=== PATIENT | male | born 1940 | race Caucasian/White ===

== ENCOUNTER 2019-03-18 13:39 | Emergency (ER) | payer MEDICARE ==
[2019-03-18 14:38] LABS: ABS Basophils 0.1 10^3/ul (0-0.2); ABS Eosinophils 0.1 10^3/ul (0-0.6); ABS Monocytes 1.2 10^3/ul (0-0.8); ABS Neutrophils 12.5 10^3/ul (1.5-7.7); Eosinophil % 0.9 %; Hematocrit 38 % (42-52); Hemoglobin 12.9 g/dL (14.0-18.0); Lymphocyte % 6.8 %; Mean Corpuscular HGB Conc 34 g/dL (31-36); Mean Corpuscular Hemoglobin 29 pg (27-31); Mean Corpuscular Volume 87 fL (80-94); Mean Platelet Volume 6.3 fL (7.4-10.4); Platelet Count 203 10^3/uL (150-450); Red Blood Count 4.43 10^6 /uL (4.18-5.48); Red Cell Distribution Width 14 % (10-15)
[2019-03-18 14:54] LABS: INR 1.23 (0.82-1.09)
[2019-03-18 14:56] LABS: Troponin I 0.02 ng/mL (<0.04)
[2019-03-18 15:08] LABS: Albumin 3.7 g/dL (3.2-5.2); Albumin/Globulin Ratio 1.1 (1-3); BUN/Creatinine Ratio 18.4 (8-20); Calcium 8.9 mg/dL (8.6-10.3); EGFR African American 89.3 (>60); EGFR Non-African American 73.8 (>60); Globulin 3.4 g/dL (2-4); Potassium 3.9 mmol/L (3.5-5.0); Total Bilirubin 0.9 mg/dL (0.2-1.0); Total Protein 7.1 g/dL (6.4-8.9)
--- NOTE | 2019-03-18 15:39 | ED ---
HPI Chest Pain - HPI Summary HPI Summary: This patient is a 78 year old M [facility] by his with a chief complaint of left CP/chest wall pain since 6 days ago. CP is associated with certain movements such as lifting his left arm. This CP is sharp and intermittent. The pain worsened last night to the point that he could not sleep in any position. Pt is not sure what caused his CP. The patient rates the current pain 4/10 in severity. Symptoms aggravated by movement. Symptoms alleviated by rest. Patient reports unproductive cough. Pt has hx of HTN, hyperlipidemia, a-fib. He is not on blood thinner medication. Note patient had lab work and his primary care doctor on March 07 that showed an elevated alkaline phosphatase. Dr. Hutchinson called the ED to let us know that he is coming in, and asked use to discuss lab results with patient. - History of Current Complaint Chief Complaint: EDChestPainROMI Time Seen by Provider: 03/18/19 15:08 Hx Obtained From: Patient, Family/Courtesy Clerk - Onset/Duration: Started Days Ago - 6, Still Present, Worse Since - last night Timing: Intermittent, Lasting Days - 6 Initial Severity: Moderate Current Severity: Moderate Pain Intensity: 4 Pain Scale Used: 0-10 Numeric Character: Sharp/Stabbing Aggravating Factor(s): Movement Alleviating Factor(s): Rest Associated Signs and Symptoms: Positive: Chest Pain, Nonproductive Cough - Allergy/Home Medications Allergies/Adverse Reactions: Allergies Allergy/AdvReac Type Severity Reaction Status Date / Time MS Oxycodone [From Percocet] Allergy Mild Altered Verified 12/16/15 12:27 Mental Status Home Medications: Home Medications Aspirin EC TAB* [Ecotrin EC Low Dose 81 MG*] 81 mg PO QPM 03/18/19 [History Confirmed 03/18/19] Azelastine HCl 137 mcg BOTH NARES BID 03/18/19 [History Confirmed 03/18/19] Calcium Carbonate/Vitamin D3 [Calcium/Vitamin D] 1 cap PO BID 03/18/19 [History Confirmed 03/18/19] Cyanocobalamin INJ * [Vitamin B12 INJ *] 1,000 mcg IM MONTHLY 03/18/19 [History Confirmed 03/18/19] Fluticasone HFA 44 mcg(NF) [Flovent Hfa 44 mcg(NF)] 1 puff INH QAM 03/18/19 [ History Confirmed 03/18/19] Hydrochlorothiazide TAB* [Hydrodiuril TAB*] 25 mg PO QAM 03/18/19 [History Confirmed 03/18/19] Irbesartan (NF) [Avapro (NF)] 300 mg PO QPM 03/18/19 [History Confirmed 03/18/19 ] Lactobacillus Acidophilus [Freeze Dried Acidophilus] 1 cap PO DAILY 03/18/19 [ History Confirmed 03/18/19] Levothyroxine TAB* [Synthroid TAB*] 75 mcg PO QAM 03/18/19 [History Confirmed ] Magnesium Oxide [Magnesium] 250 mg PO DAILY 03/18/19 [History Confirmed 03/18/19 ] Metoprolol Succinate XL TAB* [Toprol XL TAB*] 50 mg PO QAM 03/18/19 [History Confirmed 03/18/19] Multivitamins/Minerals TAB* [Theragran/minerals TAB*] 1 tab PO DAILY 03/18/19 [ History Confirmed 03/18/19] Mckenzie-3S/Dha/Epa/Fish Oil [Fish Oil 1,200 mg Softgel] 1 cap PO BID 03/18/19 [ History Confirmed 03/18/19] Simvastatin (NF) [Zocor (NF)] 40 mg PO DAILY 03/18/19 [History Confirmed ] Tetrahydrozoline HCl [Eye Drops] 0.05 % BOTH EYES QAM 03/18/19 [History Confirmed 03/18/19] PMH/Surg Hx/FS Hx/Imm Hx Previously Healthy: No Endocrine/Hematology History: Reports: Hx Thyroid Disease - LOW THYROID- ON MEDICATION FOR Denies: Hx Diabetes Cardiovascular History: Reports: Hx Hypertension - ON MEDICATION FOR Denies: Hx Pacemaker/ICD Respiratory History: Denies: Hx Asthma Musculoskeletal History: Denies: Hx Osteoporosis, Hx Scoliosis Sensory History: Reports: Hx Contacts or Glasses - GLASSES, Hx Hearing Aid - BILATERAL Opthamlomology History: Reports: Hx Contacts or Glasses - GLASSES Neurological History: Denies: Hx Headaches Psychiatric History: Denies: Hx Panic Disorder - Cancer History Cancer Type, Location and Year: SQUAMOUS AND BASAL SKIN CA - Surgical History Surgical History: Yes Surgery Procedure, Year, and Place: AAA REPAIR 2007,DACRON OVERLAY, PARTIAL CHOLECTOMY WITH ANASTAMOSIS REPAIR,CATARACT REPAIR Hx Anesthesia Reactions: No Infectious Disease History: No Infectious Disease History: Denies: Traveled Outside the [place] in Last 30 Days - Family History Known Family History: Positive: None Family History: R & n/C - Social History Alcohol Use: Rare Hx Substance Use: No Substance Use Type: Reports: None Hx Tobacco Use: No Smoking Status (MU): Former Smoker Review of Systems Positive: Chest Pain Positive: Cough - unproductive All Other Systems Reviewed And Are Negative: Yes Physical Exam - Summary Physical Exam Summary: Constitutional: Well-developed, Well-nourished, Alert. (-) Distressed Skin: Warm, Dry HENT: Normocephalic; Atraumatic Eyes: Conjunctiva normal Neck: Musculoskeletal ROM normal neck. (-) JVD, (-) Stridor, (-) Nuchal rigidity Cardio: Rhythm regular, rate normal, Heart sounds normal; Intact distal pulses; Radial pulses are 2+ and symmetric. (-) Murmur Pulmonary/Chest wall: Effort normal. (-) Respiratory distress, (-) Wheezes, (-) Rales Abd: Soft, (-) tenderness, (-) Distension, (-) Guarding, (-) Rebound Musculoskeletal: (-) Edema Lymph: (-) Cervical adenopathy Neuro: Alert, Oriented x3 Psych: Mood and affect Normal Triage Information Reviewed: Yes Vital Signs On Initial Exam: Initial Vitals Temp Pulse Resp BP Pulse Ox 98.8 F 74 20 158/82 99 03/18/19 13:49 03/18/19 13:49 03/18/19 13:49 03/18/19 13:49 03/18/19 13:49 Vital Signs Reviewed: Yes Diagnostics - Vital Signs Vital Signs Temp Pulse Resp BP Pulse Ox 03/18/19 13:49 98.8 F 74 20 158/82 99 - Laboratory Lab Results: Lab Results 03/18/19 03/18/19 03/18/19 Range/Units 14:31 14:31 14:31 WBC 15.0 H (3.5-10.8) 10^3/uL RBC 4.43 (4.18-5.48) 10^6 /uL Hgb 12.9 L (14.0-18.0) g/dL Hct 38 L (42-52) % MCV 87 (80-94) fL MCH 29 (27-31) pg MCHC 34 (31-36) g/dL RDW 14 (10-15) % Plt Count 203 (150-450) 10^3/uL MPV 6.3 L (7.4-10.4) fL Neut % (Auto) 83.6 % Lymph % (Auto) 6.8 % Vinton % (Auto) 7.8 % Eos % (Auto) 0.9 % Baso % (Auto) 0.9 % Absolute Neuts (auto) 12.5 H (1.5-7.7) 10^3/ul Absolute Lymphs (auto) 1.0 (1.0-4.8) 10^3/ul Absolute Monos (auto) 1.2 H (0-0.8) 10^3/ul Absolute Eos (auto) 0.1 (0-0.6) 10^3/ul Absolute Basos (auto) 0.1 (0-0.2) 10^3/ul Absolute Nucleated RBC 0.0 10^3/ul Nucleated RBC % 0.0 INR (Anticoag Therapy) 1.23 H (0.82-1.09) Sodium 134 L (135-145) mmol/L Potassium 3.9 (3.5-5.0) mmol/L Chloride 99 L (101-111) mmol/L Carbon Dioxide 24 (22-32) mmol/L Anion Gap 11 (2-11) mmol/L BUN 18 (6-24) mg/dL Creatinine 0.98 (0.67-1.17) mg/dL Est GFR ( Amer) 89.3 (>60) Est GFR (Non-Af Amer) 73.8 (>60) BUN/Creatinine Ratio 18.4 (8-20) Glucose 100 (70-100) mg/dL Calcium 8.9 (8.6-10.3) mg/dL Total Bilirubin 0.90 (0.2-1.0) mg/dL AST 28 (13-39) U/L ALT 23 (7-52) U/L Alkaline Phosphatase 259 H (34-104) U/L Troponin I 0.02 (<0.04) ng/mL Total Protein 7.1 (6.4-8.9) g/dL Albumin 3.7 (3.2-5.2) g/dL Globulin 3.4 (2-4) g/dL Albumin/Globulin Ratio 1.1 (1-3) Result Diagrams: 03/18/19 14:31 03/18/19 14:31 Lab Statement: Any lab studies that have been ordered have been reviewed, and results considered in the medical decision making process. - CT Chest/Abd/Pel CTA CT Interpretation Completed By: Radiologist Summary of CT Findings: IMPRESSION: 1. THE THORACIC AND ABDOMINAL AORTA ARE TORTUOUS AND ECTATIC WITHOUT EVIDENCE FOR DISSECTION. 2. STABLE PULMONARY NODULES. 3. HETEROGENEOUS ENHANCEMENT OF THE LIVER AND SUGGESTION OF MULTIPLE HYPODENSE LESIONS RAISING THE POSSIBILITY OF METASTATIC DISEASE. RECOMMEND A ABDOMINAL ULTRASOUND FOR FURTHER EVALUATION. 4. SMALL FOCAL AREA OF WALL THICKENING AND NARROWING IN THE RECTOSIGMOID COLON. RECOMMEND COLONOSCOPY TO EXCLUDE A MASS. 5. CHOLELITHIASIS WITHOUT EVIDENCE FOR ACUTE CHOLECYSTITIS. These findings were reviewed by Dr. Roque. - EKG 1341 Cardiac Rate: NL - 73 BPM EKG Rhythm: Sinus Rhythm Summary of EKG Findings: 73 BPM, sinus rhythm, T wave inversions in V1, no changes from prior Chest Pain Course/Dx - Course Course Of Treatment: 78-year-old male history of abdominal aortic aneurysm status post repair, colon polyp presents with left-sided chest pain. Differential - low suspicion for ACS, nonischemic EKG, troponin negative 1. Chest x-ray w/o pneumonia or pneumothorax. CTA without evidence of dissection or new aneurysm. CT does show hepatic lesions concerning for metastatic disease. In conjunction w elevated alkaline phosphatase concern for cancer. Possible source is colon or rectal per radiology. Discussed with patient and with Dr. Sofia of oncology who states patient can follow up outpatient. Unclear cause for pain. - Diagnoses Provider Diagnoses: Chest wall pain, Elevated alkaline phosphatase level - Provider Notifications Discussed Care Of Patient With: Jose Sofia Time Discussed With Above Provider: 17:25 Instructed by Provider To: Other - Dr. Sofia says pt can be discharged and to have pt follow up with him tomorrow. Discharge ED - Sign-Out/Discharge Documenting (check all that apply): Patient Departure - discharge Patient Received Moderate/Deep Sedation with Procedure: No - Discharge Plan Condition: Stable Disposition: HOME Patient Education Materials: Chest Pain (ED) Referrals: Jose Sofia MD [Medical Doctor] - 1 Day Arnold Whitney MD [Primary Care Provider] - 1 Day Additional Instructions: You were seen in the emergency department for chest wall pain. Your EKG (heart tracing), labs and chest x-ray did not show any cause for pain. Your CT scan showed lesions on your liver of unclear significance, these could be related to an unknown cancer. Please follow up with Dr. Sofia. It is important that you follow up with you primary care doctor in the next 1-2 days.. Please return to the emergency department for continued chest pain, trouble breathing, passing out, or if you're concerned. - Billing Disposition and Condition Condition: STABLE Disposition: Home - Attestation Statements Document Initiated by Alex: Yes Documenting Scribe: Grady Larios Provider For Whom Alex is Documenting (Include Credential): Dr. Jhon Roque MD Scribe Attestation: Grady Cardenas, scribed for Dr. Jhon Roque MD on 03/18/19 at 1927. Scribe Documentation Reviewed: Yes Provider Attestation: The documentation as recorded by the Grady watson accurately reflects the service I personally performed and the decisions made by me, Dr. Jhon Roque MD Status of Scribe Document: Viewed
[2019-03-18] MEDS ORDERED: Iohexol 350* (CONTRAST) 500 ML MDV IV ONE (15:47)
[2019-03-18 17:52] VITALS: BP 146/79
== END 2019-03-18 17:58 | disposition home or self-care (01) ==
LOC: ED 13:39
DX: R07.89 Other chest pain (principal); R74.8 Abnormal levels of other serum enzymes; R91.1 Solitary pulmonary nodule; K80.20 Calculus of gallbladder without cholecystitis without obstruction; I10 Essential (primary) hypertension; E03.9 Hypothyroidism, unspecified; Z88.5 Allergy status to narcotic agent; Z87.891 Personal history of nicotine dependence
CPT/HCPCS: 36415; 71275; 74174; 80053; 84484; 85025; 85610; 93005; 99283; Q9967

== ENCOUNTER 2019-03-22 11:06 | Emergency (ER) | payer MEDICARE ==
--- NOTE | 2019-03-22 11:58 | ED ---
HPI Chest Pain - HPI Summary HPI Summary: 78 year old M [place] [facility] accompanied by complains of waxing and waning left sided chest wall pain described as a dull ache rated 5/10 in severity since several days ago, worse since this morning. Patient was seen in ED on Sunday03/18/19 since which the chest pain has not resolved. Patient states that his chest pain was initially aggravated by deep breathing, movement , position changes but is currently aggravated by nothing. Symptoms aggravated by nothing. Symptoms alleviated by ibuprofen, 400 mg last taken at 05:00 today. Patient states that when the ibuprofen wears off, the chest pain is sharp and constant. - History of Current Complaint Chief Complaint: EDChestWallPain Time Seen by Provider: 03/22/19 11:45 Hx Obtained From: Patient Onset/Duration: Started Days Ago, Still Present, Worse Since - today Current Severity: Moderate Pain Intensity: 5 Pain Scale Used: 0-10 Numeric Character: Dull/Aching Aggravating Factor(s): Nothing Alleviating Factor(s): Nothing - Allergy/Home Medications Allergies/Adverse Reactions: Allergies Allergy/AdvReac Type Severity Reaction Status Date / Time oxycodone Allergy Mild Altered Verified 03/22/19 11:59 Mental Status PMH/Surg Hx/FS Hx/Imm Hx Endocrine/Hematology History: Reports: Hx Thyroid Disease - LOW THYROID- ON MEDICATION FOR Denies: Hx Diabetes Cardiovascular History: Reports: Hx Hypertension - ON MEDICATION FOR Denies: Hx Pacemaker/ICD Respiratory History: Denies: Hx Asthma Musculoskeletal History: Denies: Hx Osteoporosis, Hx Scoliosis Sensory History: Reports: Hx Contacts or Glasses - GLASSES, Hx Hearing Aid - BILATERAL Opthamlomology History: Reports: Hx Contacts or Glasses - GLASSES Neurological History: Denies: Hx Headaches Psychiatric History: Denies: Hx Panic Disorder - Cancer History Cancer Type, Location and Year: SQUAMOUS AND BASAL SKIN CA - Surgical History Surgery Procedure, Year, and Place: AAA REPAIR 2007,DACRON OVERLAY, PARTIAL CHOLECTOMY WITH ANASTAMOSIS REPAIR,CATARACT REPAIR Hx Anesthesia Reactions: No Infectious Disease History: No Infectious Disease History: Denies: Traveled Outside the [place] in Last 30 Days - Family History Known Family History: Negative: Diabetes Family History: R & n/C - Social History Alcohol Use: Rare Hx Substance Use: No Substance Use Type: Reports: None Hx Tobacco Use: No Smoking Status (MU): Former Smoker Review of Systems Negative: Fever Positive: Chest Pain All Other Systems Reviewed And Are Negative: Yes Physical Exam - Summary Physical Exam Summary: Appearance: The patient is well-nourished in no acute distress and in no acute pain. Skin: The skin is warm and dry, and skin color reflects adequate perfusion. HEENT: The head is normocephalic and atraumatic. The pupils are equal and reactive. The conjunctivae are clear and without drainage. Nares are patent and without drainage. Mouth reveals moist mucous membranes, and the throat is without erythema and exudate. The external ears are intact. The ear canals are patent and without drainage. The tympanic membranes are intact. Neck: The neck is supple with full range of motion and non-tender. There are no carotid bruits. There is no neck vein distension. Respiratory: Chest is non-tender. Lungs are clear to auscultation and breath sounds are symmetrical and equal. Cardiovascular: Heart is regular rate and rhythm. There is no murmur or rub auscultated. There is no peripheral edema and pulses are symmetrical and equal. Abdomen: The abdomen is soft and non-tender. There are normal bowel sounds heard in all four quadrants and there is no organomegaly palpated. Musculoskeletal: There is no back tenderness noted. Extremities are non-tender with full range of motion. There is good capillary refill. There is no peripheral edema or calf tenderness elicited. Neurological: Patient is alert and oriented to person, place and time. The patient has symmetrical motor strength in all four extremities. Cranial nerves are grossly intact. Deep tendon reflexes are symmetrical and equal in all four extremities. Psychiatric: The patient has an appropriate affect and does not exhibit any anxiety or depression. Triage Information Reviewed: Yes Vital Signs On Initial Exam: Initial Vitals Temp Pulse Resp BP Pulse Ox 97.7 F 74 18 148/71 99 03/22/19 11:13 03/22/19 11:13 03/22/19 11:13 03/22/19 11:13 03/22/19 11:13 Vital Signs Reviewed: Yes Diagnostics - Vital Signs Vital Signs Temp Pulse Resp BP Pulse Ox 03/22/19 11:13 97.7 F 74 18 148/71 99 - Laboratory Result Diagrams: 03/22/19 12:16 03/22/19 12:16 Lab Statement: Any lab studies that have been ordered have been reviewed, and results considered in the medical decision making process. - CT Chest/Thorax CTA CT Interpretation Completed By: Radiologist Summary of CT Findings: 1. NO EVIDENCE FOR PULMONARY EMBOLISM. 2. ECTATIC THORACIC AORTA, NO EVIDENCE FOR DISSECTION. 3. STABLE PULMONARY NODULES. 4. HYPODENSE HEPATIC LESIONS NOTED IN THE PRIOR STUDY RECOMMEND AN OUTPATIENT ULTRASOUND OF THE LIVER FOR FURTHER EVALUATION. ED physician has reviewed this report. Chest Pain Course/Dx - Course Course Of Treatment: Mr. Chi presented with continued left chest pain. He was evaluated here a couple days ago and was ruled out for an NC. A CTA of his chest abdomen was obtained to rule out an aneurysm or dissection. An incidental finding of an elevated alkaline phosphatase, hypodense lesions in the liver and pulmonary nodules led to a concern for possible carcinoma. There was a suggestion of an area of his colon that might be a carcinoma and he was referred to Dr. Sofia. He's had continued pain that is marginally controlled by 400 mg of ibuprofen 3 times a day. He does admit to a little bit of shortness of breath and his chest pain is sharp and pleuritic. It also hurts to more general movement. Because his CTA was not PE protocol and a d-dimer today was sharply elevated, a repeat CT was obtained and showed no PE. He likely needs a PET scan and he will be seeing Dr. Sofia on Sunday. I recommended that he take 600 mg of ibuprofen every 6-8 hours. - Diagnoses Provider Diagnoses: Chest wall pain Discharge ED - Sign-Out/Discharge Documenting (check all that apply): Patient Departure - Discharge Patient Received Moderate/Deep Sedation with Procedure: No - Discharge Plan Condition: Stable Disposition: HOME Patient Education Materials: Chest Wall Pain (ED) Referrals: Jose Sofia MD [Medical Doctor] - Additional Instructions: Follow up with Dr. Sofia on Sunday03/25/19. Return to the Emergency Department for new or worsening symptoms. - Billing Disposition and Condition Condition: STABLE Disposition: Home - Attestation Statements Document Initiated by Scribe: Yes Documenting Scribe: Raina Velasquez Provider For Whom Scribe is Documenting (Include Credential): Tommy Holland MD Scribe Attestation: IRaina, scribed for Tommy Holland MD on 03/22/19 at 1812. Scribe Documentation Reviewed: Yes Provider Attestation: The documentation as recorded by the scribe, Raina Velasquez accurately reflects the service I personally performed and the decisions made by me, Tommy Holland MD Status of Scribe Document: Viewed
[2019-03-22 12:28] LABS: ABS Basophils 0.2 10^3/ul (0-0.2); ABS Eosinophils 0.3 10^3/ul (0-0.6); ABS Monocytes 1.2 10^3/ul (0-0.8); ABS Neutrophils 12.8 10^3/ul (1.5-7.7); Eosinophil % 1.6 %; Hematocrit 36 % (42-52); Hemoglobin 12.2 g/dL (14.0-18.0); Lymphocyte % 6.6 %; Mean Corpuscular HGB Conc 34 g/dL (31-36); Mean Corpuscular Hemoglobin 29 pg (27-31); Mean Corpuscular Volume 87 fL (80-94); Mean Platelet Volume 6.7 fL (7.4-10.4); Nucleated Red Blood Cells % 0.1; Platelet Count 186 10^3/uL (150-450); Red Blood Count 4.16 10^6 /uL (4.18-5.48); Red Cell Distribution Width 14 % (10-15); White Blood Count 15.5 10^3/uL (3.5-10.8)
[2019-03-22 12:47] LABS: Albumin 3.4 g/dL (3.2-5.2); Albumin/Globulin Ratio 1.1 (1-3); BUN/Creatinine Ratio 20.5 (8-20); Calcium 8.3 mg/dL (8.6-10.3); EGFR African American 72.8 (>60); EGFR Non-African American 60.1 (>60); Globulin 3.2 g/dL (2-4); Potassium 3.2 mmol/L (3.5-5.0); Total Bilirubin 0.6 mg/dL (0.2-1.0); Total Protein 6.6 g/dL (6.4-8.9)
[2019-03-22 12:48] LABS: Troponin I 0.02 ng/mL (<0.04)
[2019-03-22] MEDS ORDERED: Iohexol 350* (CONTRAST) 500 ML MDV IV ONE (13:26)
[2019-03-22 15:16] VITALS: BP 137/98
== END 2019-03-22 15:15 | disposition home or self-care (01) ==
LOC: ED 11:06
DX: R07.89 Other chest pain (principal); I10 Essential (primary) hypertension; Z85.828 Personal history of other malignant neoplasm of skin; E03.9 Hypothyroidism, unspecified
CPT/HCPCS: 36415; 71275; 80053; 84484; 85025; 85379; 99284; Q9967

== ENCOUNTER 2019-04-09 | Inpatient (IN) | payer MEDICARE ==
[2019-04-09] MEDS ORDERED: Ondansetron INJ* 2 MG/ML VIAL IV ONE (00:52)
[2019-04-09] MEDS ORDERED: NS 0.9% 1000 ML** 1,000 ML IV ONE (00:52)
--- NOTE | 2019-04-09 01:12 | ED ---
Nausea/Vomiting/Diarrhea HPI - HPI Summary HPI Summary: Patient complains of left rib pain and sternal chest pain 3 weeks with 2 negative cardiac workups at this ED, and sudden onset nausea vomiting starting today, and urinary retention starting this evening. History of liver biopsy yesterday with results pending. Vomiting 2 at 9:15 and 9:45 PM tonight. No blood noted. Patient denies trauma as source of chest pain. CP Symptoms are unrelated to exertion. Denies fever, cough, sore throat, SOB, diarrhea, abdominal pain, change in urine, change in BM. Medical history is HTN, hypothyroid, anemia. - History of Current Complaint Chief Complaint: EDNauseaVomitDiarrh Stated Complaint: WEAKNESS PER EMS Time Seen by Provider: 04/09/19 00:40 Hx Obtained From: Patient Onset/Duration: Sudden Onset - No Timing: Intermittent Episodes Lasting: Severity Initially: Moderate Severity Currently: Moderate Pain Intensity: 5 Pain Scale Used: 0-10 Numeric - Soap. Character: Dull Aggravating Factor(s): Nothing Alleviating Factor(s): Nothing Vomiting Characteristics: Nonbilious Diarrhea Presence: No - Allergies/Home Medications Allergies/Adverse Reactions: Allergies Allergy/AdvReac Type Severity Reaction Status Date / Time oxycodone Allergy Mild Altered Verified 04/09/19 00:18 Mental Status Home Medications: Home Medications Aspirin 81 mg CHEW TAB* [Aspirin Low Dose TAB*] 81 mg PO DAILY 04/09/19 [ History Confirmed 04/09/19] PMH/Surg Hx/FS Hx/Imm Hx Endocrine/Hematology History: Reports: Hx Thyroid Disease - LOW THYROID- ON MEDICATION FOR Denies: Hx Diabetes Cardiovascular History: Reports: Hx Hypertension - ON MEDICATION FOR Denies: Hx Pacemaker/ICD Respiratory History: Denies: Hx Asthma Musculoskeletal History: Denies: Hx Osteoporosis, Hx Scoliosis Sensory History: Reports: Hx Contacts or Glasses - GLASSES, Hx Hearing Aid - BILATERAL Opthamlomology History: Reports: Hx Contacts or Glasses - GLASSES Neurological History: Denies: Hx Headaches Psychiatric History: Denies: Hx Panic Disorder - Cancer History Cancer Type, Location and Year: SQUAMOUS AND BASAL SKIN CA - Surgical History Surgery Procedure, Year, and Place: AAA REPAIR 2007,DACRON OVERLAY, PARTIAL CHOLECTOMY WITH ANASTAMOSIS REPAIR,CATARACT REPAIR Hx Anesthesia Reactions: No Infectious Disease History: No Infectious Disease History: Denies: Traveled Outside the [place] in Last 30 Days - Family History Known Family History: Negative: Diabetes Family History: R & n/C - Social History Alcohol Use: None Hx Substance Use: No Substance Use Type: Reports: None Hx Tobacco Use: No Smoking Status (MU): Former Smoker Review of Systems Constitutional: Negative Eyes: Negative ENT: Negative Positive: Chest Pain Respiratory: Negative Positive: Vomiting, Nausea Genitourinary: Negative Musculoskeletal: Negative Skin: Negative Neurological: Negative Psychological: Normal All Other Systems Reviewed And Are Negative: Yes Physical Exam - Summary Physical Exam Summary: Abdomen soft nontender. Triage Information Reviewed: Yes Vital Signs On Initial Exam: Initial Vitals Temp Pulse Resp BP Pulse Ox 98.1 F 68 18 146/75 97 04/09/19 00:13 04/09/19 00:13 04/09/19 00:13 04/09/19 00:13 04/09/19 00:13 Vital Signs Reviewed: Yes Appearance: Positive: Well-Appearing Skin: Positive: Warm Head/Face: Positive: Normal Head/Face Inspection Eyes: Positive: Normal Neck: Positive: Supple Respiratory/Lung Sounds: Positive: Clear to Auscultation Cardiovascular: Positive: Normal Abdomen Description: Positive: Nontender Musculoskeletal: Positive: Normal Neurological: Positive: Normal Psychiatric: Positive: Normal AVPU Assessment: Alert - Alfred Coma Scale Best Eye Response: 4 - Spontaneous Best Motor Response: 6 - Obeys Commands Best Verbal Response: 5 - Oriented Coma Scale Total: 15 Diagnostics - Vital Signs Vital Signs Temp Pulse Resp BP Pulse Ox 04/09/19 00:13 98.1 F 68 18 146/75 97 - Laboratory Result Diagrams: 04/09/19 07:33 04/09/19 07:33 Lab Statement: Any lab studies that have been ordered have been reviewed, and results considered in the medical decision making process. Naus/Vom/Diarrhea Course/Dx - Course Course Of Treatment: Patient complains of left rib pain and sternal chest pain 3 weeks with 2 negative cardiac workups at this ED, and sudden onset nausea vomiting starting today, and urinary retention starting this evening. History of liver biopsy yesterday with results pending. Vomiting 2 at 9:15 and 9:45 PM tonight. No blood noted. Patient denies trauma as source of chest pain. CP Symptoms are unrelated to exertion. Denies fever, cough, sore throat, SOB, diarrhea, abdominal pain, change in urine, change in BM. Medical history is HTN , hypothyroid, anemia. Vital signs within normal limits. WBC 19.4. CRP 174. Sodium was 22. Alkaline phosphatase 508, with history of elevated alkaline phosphatase. Hemoglobin 10.2, with history of anemia. Labs otherwise within normal limits. CT abdomen and pelvis suspicious for metastatic disease of the liver , otherwise unremarkable. EKG sinus rhythm, normal FARSHAD, similar to prior from 03/18. Patient admitted to hospitalist for hyponatremia. - Differential Dx/Diagnosis Provider Diagnosis: Weakness, Nausea & vomiting, Hyponatremia, Leukocytosis, Urinary retention, Elevated alkaline phosphatase level, Anemia Condition At Discharge: Stable Discharge ED - Sign-Out/Discharge Documenting (check all that apply): Patient Departure - Discharge Plan Condition: Stable Disposition: ADMITTED TO [facility] - Billing Disposition and Condition Condition: STABLE Disposition: Admitted to [facility] - Attestation Statements Provider Attestation: I was available for consult. This patient was seen by the GRANT. The patient was not presented to, seen by, or examined by me. Zhang Hood MD
[2019-04-09 01:14] LABS: Hematocrit 31 % (42-52); Hemoglobin 10.2 g/dL (14.0-18.0); Mean Corpuscular HGB Conc 33 g/dL (31-36); Mean Corpuscular Hemoglobin 28 pg (27-31); Mean Corpuscular Volume 87 fL (80-94); Mean Platelet Volume 8.1 fL (7.4-10.4); Platelet Count 43 10^3/uL (150-450); Red Blood Count 3.61 10^6 /uL (4.18-5.48); Red Cell Distribution Width 14 % (10-15); White Blood Count 19.4 10^3/uL (3.5-10.8)
[2019-04-09 01:28] LABS: Albumin 3.1 g/dL (3.2-5.2); Albumin/Globulin Ratio 0.9 (1-3); C Reactive Protein 174.56 mg/L (<8.01); Calcium 8.3 mg/dL (8.6-10.3); EGFR African American 67.4 (>60); EGFR Non-African American 55.7 (>60); Globulin 3.3 g/dL (2-4); Potassium 4.8 mmol/L (3.5-5.0); Total Protein 6.4 g/dL (6.4-8.9)
[2019-04-09 01:30] LABS: Troponin I 0.03 ng/mL (<0.04)
[2019-04-09 01:43] LABS: ABS Basophils 0.1 10^3/ul (0-0.2); ABS Eosinophils 0.1 10^3/ul (0-0.6); ABS Lymphocytes 0.7 10^3/ul (1.0-4.8); ABS Monocytes 1.1 10^3/ul (0-0.8); ABS Neutrophils 17.4 10^3/ul (1.5-7.7); Eosinophil % 0.3 %; Lymphocyte % 3.5 %; Nucleated Red Blood Cells % 0.1
[2019-04-09 04:37] LABS: Urine Appearance Clear; Urine Bilirubin Negative (Negative); Urine Blood Negative (Negative); Urine Color Yellow; Urine Glucose Negative (Negative); Urine Ketones Negative (Negative); Urine Nitrite Negative (Negative); Urine Protein Negative (Negative); Urine Specific Gravity 1.015 (1.010-1.030); Urine Urobilinogen Negative (Negative)
[2019-04-09] MEDS ORDERED: traMADol TAB* 50 MG PO PRN (06:28)
[2019-04-09 07:43] LABS: Hematocrit 29 % (42-52); Mean Corpuscular HGB Conc 34 g/dL (31-36); Mean Corpuscular Hemoglobin 29 pg (27-31); Mean Corpuscular Volume 85 fL (80-94); Mean Platelet Volume 7.5 fL (7.4-10.4); Platelet Count 41 10^3/uL (150-450); Red Blood Count 3.44 10^6 /uL (4.18-5.48); Red Cell Distribution Width 14 % (10-15); White Blood Count 19.3 10^3/uL (3.5-10.8)
[2019-04-09] MEDS: HYDROcodone/ACETAMIN 5-325 MG* 1 TAB PO PRN ×2 (07:43→16:15)
[2019-04-09 07:58] LABS: Albumin/Globulin Ratio 0.9 (1-3); BUN/Creatinine Ratio 23.1 (8-20); Calcium 8.1 mg/dL (8.6-10.3); EGFR Non-African American 57.8 (>60); Globulin 3.2 g/dL (2-4); Potassium 4.9 mmol/L (3.5-5.0); Total Bilirubin 0.9 mg/dL (0.2-1.0); Total Protein 6.2 g/dL (6.4-8.9)
[2019-04-09 08:19] LABS: ABS Basophils 0.1 10^3/ul (0-0.2); ABS Eosinophils 0.1 10^3/ul (0-0.6); ABS Lymphocytes 1.3 10^3/ul (1.0-4.8); ABS Monocytes 1.1 10^3/ul (0-0.8); ABS Neutrophils 16.7 10^3/ul (1.5-7.7); Eosinophil % 0.4 %; Lymphocyte % 6.9 %; Nucleated Red Blood Cells % 0.1
--- NOTE | 2019-04-09 10:09 | HP ---
CC: Dr. Jose Sofia; Dr. Arnold Whitney * ADMISSION HISTORY AND PHYSICAL: DATE OF ADMISSION: 04/09/19 ONCOLOGIST: Dr. Jose Sofia. PRIMARY CARE PHYSICIAN: Dr. Arnold Whitney. CHIEF COMPLAINT: Nausea, vomiting, and decreased urination. 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 He was recently been having on and off pain in the left rib area for many months now and finally he came to the ER for evaluation a few weeks ago, at which point he was also noted to have new lesions in his liver and he was seen by Dr. Sofia, who recommended biopsy of his liver, which was happening on 04/07/19, but then the day after he started having severe nausea, vomiting. He has been having decreased input for the past few months and he also had decreased urine output, at which point, Dr. Dodge , who was covering Oncology suggested him to come to the ER. He also had 2 episodes of vomiting coming to the ER, but that has resolved since then. He denies any fever, chills. He has had some chronic cough, which is unchanged at this point and denied any previous urinary burning sensation or pain with urination, although he did state that they were having a difficult time placing a Escalera, so had to be placed with a stiff Escalera catheter. The patient otherwise denies any dizziness. PAST MEDICAL HISTORY: As mentioned AFib for many years, but not been on any anticoagulation, status post colectomy, status post AAA repair, status post cataract surgery, history of hypertension, hypothyroidism, hypercholesterolemia , status post squamous cell and basal cell skin cancer, vitamin B12 deficiency, torn rotator cuff in 2016 without surgery, status post cardiac cath in 2014, which was negative, history of cellulitis in 2007, history of lymphedema of the left thigh. HOME MEDICATIONS: The patient is on: 1. Tramadol 25 mg q.8 hours p.r.n. 2. Simvastatin 40 mg oral daily. 3. Nabumetone 500 mg p.o. b.i.d. 4. Multivitamins 1 tablet oral daily. 5. Metoprolol succinate 50 mg every morning. 6. Levothyroxine 75 mcg every morning. 7. Irbesartan 300 mg q.p.m. 8. Vicodin 1 tablet q.6 hours p.r.n. 9. Hydrochlorothiazide 25 mg q.a.m. 10. Flovent 1 puff by inhalation every morning. 11. Colace 100 mg oral daily. 12. Cyanocobalamin 1000 mg IM monthly. 13. Azelastine both nares b.i.d. 14. Aspirin 81 mg daily. ALLERGIES: The patient is allergic to OXYCODONE, which causes him to have strong psychotic reaction. FAMILY HISTORY: Noncontributory at stated age, but mother did of brain tumor at age 36 and daughter had breast cancer at 48. 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 Alcohol significant use in the past, but none currently. Former smoker, about a pack a day for 10 years, quit in 1962. No other drug use. The patient has signed DNR/DNI and his Keesha is the healthcare proxy. REVIEW OF SYSTEMS: A 14-point review of systems did not reveal any new information other than the ones mentioned in the HPI. PHYSICAL EXAMINATION GENERAL: The patient is awake, alert, and oriented x3. Does not appear to be in any acute respiratory distress. VITAL SIGNS: In the ER, BP was noted to be 127/70, heart rate 71, respirations rate 20, saturating 96% on room air, temperature was noted to be 98.1. HEAD AND NECK: Atraumatic and normocephalic. Bilateral pupils are reactive. Oral mucosa was moist. NECK: Supple. No jugular venous distension. LUNGS: Clear to auscultation bilaterally. No wheezes, rhonchi, or rales. HEART: S1, S2, regular rate and rhythm. ABDOMEN: Soft with tenderness in the mid epigastric area where he had the biopsy. He was also having positive bowel sounds and abdomen itself was pretty soft. EXTREMITIES: The patient had a bilateral lower extremity edema up to the knees. DIAGNOSTIC STUDIES/LAB DATA: CBC showed elevated white count of 19.4, hemoglobin and hematocrit is stable, platelet count was noted to be low at 43. Comprehensive metabolic panel shows sodium of 122, bicarb low at 20, BUN elevated at 30, and creatinine elevated at 1.25. C-reactive protein was elevated at 174. Urinalysis was negative for any leuk esterase or nitrites. CT abdomen and pelvis without contrast was read as several undefined area of low attenuation in both lobes, the largest one measuring 6.4 cm in the left and some of these lesions are larger compared to the prior CT from about 20 days ago and are suspicious for metastatic disease. Sclerotic lesions in the T11, L2 , L3, and L4, which have developed since prior CT, may represent osteoblastic metastasis, cholelithiasis, and colonic diverticulosis without evidence of diverticulitis, and large prostate gland was also noted. IMPRESSION: This is a 78-year-old gentleman with multiple medical problems, here with abdominal pain, nausea, vomiting, and difficulty urination, requiring Escalera catheter placement likely secondary to multifactorial including metastatic cancer to his liver and a possible benign prostatic hypertrophy and decreased p.o. intake. ASSESSMENT: 1. Decreased urination due to prostatic hypertrophy with combination of decreased p.o. intake. We will start the patient on Escalera catheter and monitor output. The patient already given a liter of IV fluids and given his lower extremity edema, I would not recommend any further hydration until echocardiogram is performed. 2. Hyponatremia likely combination of decreased p.o. intake, especially salt with increased fluid intake, although it could be related to his acute kidney injury. 3. History of liver cancer. I spoke with Dr. Dodge, who will takeover the patient's care and followup next leukocytosis and thrombocytopenia likely all reactive to malignancy. At this point, there is no obvious source of infection. We will monitor for systemic inflammatory response syndrome criteria and consider antibiotics if the patient meets systemic inflammatory response syndrome criteria or a localized infection is identified. 4. DVT prophylaxis with Lovenox. 5. History of hypothyroidism, restart home medications. 6. History of hypertension, we will hold BP medication given his low normal. 7. Chronic left chest pain. We will restart his home medications. 8. Code status. The patient is DNR/DNI and the MOLST form has been updated to reflect this. [id number]/[facility] #: [id number] [facility]
[2019-04-09] MEDS: Levothyroxine TAB* 75 MCG TAB PO SCH (10:19)
[2019-04-09] MEDS: Multivitamins/Minerals TAB PO SCH (10:19)
[2019-04-09] MEDS: Docusate CAP* 100 MG PO SCH (10:19)
[2019-04-09] MEDS: Fluticasone HFA 44 mcg(NF) MDI INH SCH (12:11)
--- NOTE | 2019-04-09 12:22 | ECHO ---
*[facility]* [place] [address] Fax #: [phone] Transthoracic Echocardiogram Patient: Jewel Chi : 1940 Study Date: 04/09/2019 Age: 78 Gender: M HR: 80 bpm Height: 70 in /177.8 cm BSA: 2.12 m^2 Weight: 206.6 lb /93.9 kg BMI: 29.7 kg/m^2 *Truck Rental Manager: * Kelsi Phillips RDCS RN *Referring Physician: * Fabio Thompson *Reading Physician: * Valentina Saavedra MD Indications: Congestive Heart Failure. History: Atrial fibrillation. AAA repair. Risk factors: Hypertension. Conclusions Summary: - Left ventricle: Systolic function is hyperdynamic. The estimated ejection fraction is 60-65%. - Right ventricle: Systolic function is normal. - Mitral valve: There is trace regurgitation. - Aortic valve: The findings are consistent with mild stenosis. The peak systolic velocity is 1.9 m/sec. The mean systolic gradient is 7.0 mm Hg. The peak systolic gradient is 14.0 mm Hg. The LVOT to aortic valve VTI ratio is 0.63. The valve area by the velocity-time integral method is 2.00 cm^2. The valve area by the peak velocity method is 2.30 cm^2. - Pulmonic valve: There is trace to mild regurgitation. - Ascending aorta: The ascending aorta is mildly dilated at 4.0 cm. - Compared with prior echocardiogram of 03/13/11, ejection fraction is stable, replaces atrioventricular sclerosis. Study data: Transthoracic echocardiogram. Procedure: Transthoracic echocardiography was performed. Image quality was fair. Complete 2D, spectral Doppler, and color flow Doppler. Location: Bedside. Patient status: Inpatient. Patient room number: 450-02. Rhythm: Normal sinus rhythm. Findings Left ventricle: The cavity size is mildly reduced. Wall thickness is normal. Systolic function is hyperdynamic. The estimated ejection fraction is 60-65%. Wall motion is normal; there are no regional wall motion abnormalities. There is no consistent Doppler evidence of clinically significant diastolic dysfunction. Right ventricle: The cavity size is normal. Systolic function is normal. Left atrium: The atrium is at the upper limits of normal in size. Right atrium: Not well visualized. Mitral valve: The mitral valve annulus appears mildly calcified. The leaflets are mildly thickened. There is no evidence of stenosis. There is trace regurgitation. Aortic valve: The annulus is mildly calcified. The valve is trileaflet. The leaflets are mildly thickened. Valve mobility is mildly restricted, LCC. The findings are consistent with mild stenosis. There is trace regurgitation. Tricuspid valve: Not well visualized. There is no evidence of stenosis. There is trace regurgitation. Pulmonic valve: The valve is structurally normal. There is no evidence of stenosis. There is trace to mild regurgitation. Aorta: Aortic root: The aortic root is mildly dilated. Ascending aorta: The ascending aorta is mildly dilated at 4.0 cm. Aortic arch: The aortic arch is not dilated. Pericardium: There is no pericardial effusion. Pulmonary arteries: The main pulmonary artery is normal-sized. Systolic pressure can not be accurately estimated. Systemic veins: Inferior vena cava: Not visualized. Measurements Left ventricle Value Ref Aortic valve Value Ref NAA, LAX (L) 4.0 cm 4.2 - 5.8 Tri diam, ED 2.1 cm ---- ESD, LAX (L) 2.0 cm 2.5 - 4.0 Peak v, S 1.9 m/sec ---- FS, LAX (H) 49 % 25 - 43 VTI, S 29.5 cm ---- PW, ED 1.0 cm 0.6 - 1.0 Mean grad, S 7.0 mm Hg ---- IVS/PW, ED 0.92 Peak grad, S 14.0 mm Hg ---- E', lat tri, TDI 10.3 cm/sec >=10.0 LVOT/AV, VTI ratio 0.63 --- - E/e', lat tri, 7 OWEN, VTI 2.00 cm^2 ---- TDI OWEN, Vmax 2.30 cm^2 ---- E', med tri, TDI 7.1 cm/sec >=7.0 E/e', med tri, 11 Mitral valve Value Ref TDI Peak E 0.75 m/sec ---- E', avg, TDI 8.7 cm/sec Peak A 0.97 m/sec ---- E/e', avg, TDI 9 <=14 Decel time 342 ms --- - Peak grad, D 2.3 mm Hg ---- LVOT Value Ref Peak E/A ratio 0.8 ---- Diam, S 2.00 cm Area 3.1 cm^2 Pulmonic valve Value Ref Peak irene, S 1.37 m/sec Peak v, S 1.1 m/sec ---- VTI, S 18.7 cm Peak grad, S 5.0 mm Hg ---- Peak grad, S 8 mm Hg Mean grad, S 4 mm Hg Aortic root Value Ref SV 59 ml Root diam 3.7 cm <4.2 SV/bsa 28 ml/m^2 Ascending aorta Value Ref Ventricular septum Value Ref AAo AP diam, S 4.0 cm ---- IVS, ED 0.9 cm 0.6 - 1.0 Aortic arch Value Ref Right ventricle Value Ref Arch diam 3.3 cm ---- NAA minor ax, 2.7 cm 1.9 - 3.5 A4C mid Decending aorta Value Ref Tracy peak irene 0.92 m/sec ---- Left atrium Value Ref AP dim, ES 3.10 cm 3.00 - 4.00 ML dim, A4C 4.4 cm SI dim, A4C 6.0 cm Vol/bsa, ES, 1-p 34 ml/m^2 12 - 37 A4C Vol/bsa, ES, A/L 33 ml/m^2 16 - 34 Legend: (L) and (H) dejon values outside specified reference range. Prepared and electronically signed by Valentina Saavedra MD 04/09/2019 12:18
--- NOTE | 2019-04-09 19:22 | CONS ---
CC: Dr. Sofia; Dr. Whitney * GASTROENTEROLOGY CONSULT REPORT: DATE OF CONSULT: 04/09/19 - ROOM #450 REASON FOR CONSULT: Concern for GI malignancy. REQUESTING PROVIDER: Dr. Sofia. PRIMARY CARE PROVIDER: Dr. Whitney. HISTORY OF PRESENT ILLNESS: Mr. 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 To review, Mr. Chi has a history of endoscopically unresectable polyp in 2013. He underwent a right hemicolectomy and was noted to have a tubulovillous adenoma with high-grade dysplasia. He did not need to receive chemotherapy or radiation therapy. Last colonoscopy in 2016 was unremarkable. He has had a few years of hiccups, GERD, and coughing in the setting of eating fast. These symptoms seem to have improved over the summer when he discontinued naproxen. He has noticed a 25- pound weight loss over the past 6 months associated with progressive early satiety. In mid March, he developed left pain across the upper abdomen and below the nipple and rib cage. This pain seems to radiate to his back. Workup with a CT scan demonstrated multiple hypodense lesions in the liver concerning for metastatic disease. It was also noted he had wall thickening and narrowing in the rectosigmoid colon. The patient underwent a liver biopsy on 04/07/19. This biopsy demonstrated poorly differentiated adenocarcinoma with staining suggestive of an upper GI primary. Following the liver biopsy, he developed severe nausea and several episodes of vomiting. He also noticed decreased urine output. He was directed to come to the ED. In the ED, a CT scan was repeated and was noted to have persistent hepatic lesions consistent with metastatic disease. There were also new sclerotic lesions in the T11, L2, L3 and L4 vertebral bodies concerning for osteoblastic metastases. Since admission, his nausea and vomiting seem to have improved. GI was consulted given concern for an upper GI primary. On interview, Mr. Chi states that he is feeling fairly well. He has the persistence of left upper abdominal/rib discomfort with some radiation to the back. He continues to have a decreased appetite and early satiety. Denies any other upper GI symptoms such as reflux or dysphagia. He has been started on some narcotic medications for his pain, which has resulted in constipation. Prior to starting these medications, he did not notice any change in his bowel habit. He has not seen any melena or hematochezia. Weight loss is notable for 25 pounds over the past 6 months, as discussed above. He was using ibuprofen in the past for the discomfort in his left upper abdominal area, but he has since discontinued this medication. He is on aspirin 81 mg. PAST MEDICAL AND SURGICAL HISTORY: 1. 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 2. AAA, status post repair. 3. AFib, not on anticoagulation. 4. History of a tubulovillous adenoma with high-grade dysplasia, status post right hemicolectomy. 5. Hypertension. 6. Hyperlipidemia. 7. Hypothyroidism. 8. Bilateral (left greater than right) essential lymphedema. 9. History of squamous and basal cell skin cancers. 10. Vitamin B12 deficiency. 11. Torn rotator cuff in 2016, not managed surgically. 12. Cataract surgeries. HOME MEDICATIONS: Include: 1. Tramadol 25 mg every 8 hours p.r.n. 2. Simvastatin 40 mg daily. 3. Nabumetone 500 mg twice daily. 4. Multivitamin daily. 5. Metoprolol succinate 50 mg every morning. 6. Levothyroxine 75 mcg every morning. 7. Irbesartan 300 mg every p.m. 8. Vicodin q.6 hours p.r.n. 9. Hydrochlorothiazide 25 mg every morning. 10. Flovent 1 puff every morning. 11. Colace 100 mg daily. 12. Vitamin B12 at 1000 mg IM monthly. 13. Astelin b.i.d. 14. Aspirin 81 mg daily. ALLERGIES: No known drug allergies, although he has a sensitivity to OXYCODONE. FAMILY HISTORY: Mother of a rapidly progressive brain tumor at age 36. His daughter had breast cancer at 48. SOCIAL HISTORY: to his , Keesha. 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 He has had significant alcohol use in the past, but none currently. History of smoking, quit in 1962, has a 10- pack-year history. REVIEW OF SYSTEMS: Complete review of systems is negative, except as mentioned in HPI PHYSICAL EXAM: Vital Signs: Afebrile, heart rate 78, blood pressure 122/69, 95% on room air, respiratory rate 16. General: Comfortable-appearing very pleasant gentleman, sitting in bed. at bedside. HEENT: Mucous membranes moist. Cardiovascular: Regular rate and rhythm. Pulmonary: Breathing comfortably. Abdomen: Soft and nondistended. Mild tenderness along the epigastrium. Extremities: Significant lower extremity edema, left greater than right. Skin: No jaundice. DIAGNOSTIC STUDIES/LAB DATA: Labs reviewed. White count 19.3, hemoglobin 10, hematocrit 29, platelet count 41. Sodium 124, BUN 28, creatinine 1.21. Bilirubin 0.9, AST 54, ALT 38, alk phos 44, and CRP 175. Imaging: CT abdomen and pelvis on admission, as described in the HPI, noted multiple metastatic lesions in the liver as well as sclerotic lesions in the bones. Diverticulosis noted. IMPRESSION AND RECOMMENDATIONS: Mr. Chi is a 78-year-old gentleman with a recent diagnosis of metastatic adenocarcinoma to liver and bone of unknown primary, who is admitted with nausea and vomiting. Nausea and vomiting seemed to have now resolved. GI consulted as the biopsy from the liver lesion confirmed metastatic adenocarcinoma with staining suggestive of an upper gastrointestinal source. The patient reports weight loss , decreased appetite, significant progressive early satiety, and left upper quadrant versus rib discomfort with some radiation to his back. Of note, the CT scan in March suggested a possible narrowing in the rectosigmoid colon, although this was not reported on the more recent 04/09/19 CT scan. We will plan for an EGD tomorrow to assess for possible upper gastrointestinal malignancy. The patient's platelet count has been in the low 40s over past two checks. I would favor giving him a transfusion of platelets before the procedure. Please keep the patient n.p.o. after midnight. Thank you very much for this consult. GI will continue to follow. [id number]/[facility] #: [id number] [facility]
[2019-04-09] MEDS: traMADol TAB* 50 MG PO PRN (19:31)
[2019-04-09] MEDS: Ondansetron INJ* 2 MG/ML VIAL IV PRN (20:46)
[2019-04-09 22:47] LABS: Urine Potassium Concentration 65.9 mmol/L
[2019-04-10] MEDS: HYDROcodone/ACETAMIN 5-325 MG* 1 TAB PO PRN (04:47)
[2019-04-10] MEDS: Levothyroxine TAB* 75 MCG TAB PO SCH (05:33)
[2019-04-10 06:45] LABS: ABS Eosinophils 0.1 10^3/ul (0-0.6); ABS Lymphocytes 1.2 10^3/ul (1.0-4.8); ABS Monocytes 1.5 10^3/ul (0-0.8); ABS Neutrophils 17.7 10^3/ul (1.5-7.7); Hematocrit 27 % (42-52); Hemoglobin 9.4 g/dL (14.0-18.0); Mean Corpuscular HGB Conc 35 g/dL (31-36); Mean Corpuscular Hemoglobin 30 pg (27-31); Mean Corpuscular Volume 85 fL (80-94); Mean Platelet Volume 8.2 fL (7.4-10.4); Platelet Count 33 10^3/uL (150-450); Red Blood Count 3.18 10^6 /uL (4.18-5.48); Red Cell Distribution Width 14 % (10-15); White Blood Count 20.4 10^3/uL (3.5-10.8)
[2019-04-10 07:00] LABS: ALT 38 U/L (7-52); AST 58 U/L (13-39); Albumin 2.9 g/dL (3.2-5.2); Albumin/Globulin Ratio 0.9 (1-3); Alkaline Phosphatase 465 U/L (34-104); Anion Gap 12 mmol/L (2-11); BUN/Creatinine Ratio 24.5 (8-20); Blood Urea Nitrogen 26 mg/dL (6-24); CO2 Carbon Dioxide 19 mmol/L (22-32); Calcium 7.9 mg/dL (8.6-10.3); Chloride 94 mmol/L (101-111); EGFR African American 81.5 (>60); EGFR Non-African American 67.4 (>60); Globulin 3.1 g/dL (2-4); Glucose 88 mg/dL (70-100); Potassium 4.5 mmol/L (3.5-5.0); Sodium 125 mmol/L (135-145)
[2019-04-10 07:30] LABS: Eosinophil % 0.3 %; Lymphocyte % 5.9 %
[2019-04-10] MEDS: Fluticasone HFA 44 mcg(NF) MDI INH SCH (08:36)
[2019-04-10] MEDS: Docusate CAP* 100 MG PO SCH (08:46)
[2019-04-10] MEDS: Multivitamins/Minerals TAB PO SCH (08:46)
[2019-04-10] MEDS ORDERED: Influenza VAC *QUAD* 2019-20* 0.5 ML SYRINGE IM ONE (09:00)
--- NOTE | 2019-04-10 09:35 | PN ---
Progress Note - Progress Note Date of Service: 04/10/19 SOAP: Subjective: []Admitted early AM 04/09 for urinary retention and nausea. Found to have hyponatremia. Feeling OK overall. Got some sleep last night. Pain to left rib cage persists. Some back pain and legs get achy. Currently feels pain meds help, however gets nauseated with tramadol. Medication: Hydrocodone Bitart/Acetaminophen ([place] 5-325 Tab*) 1 tab PO Q6HR PRN PRN Reason: PAIN - SEVERE Last Admin: 04/10/19 04:47 Dose: 1 tab Docusate Sodium (Colace Cap*) 100 mg PO DAILY [facility] Last Admin: 04/10/19 08:46 Dose: 100 mg Fluticasone Propionate (Flovent Hfa 44 Mcg(Nf)) 1 puff INH QAM [facility] Last Admin: 04/10/19 08:36 Dose: Not Given Levothyroxine Sodium (Synthroid Tab*) 75 mcg PO 0600 [facility] Last Admin: 04/10/19 05:33 Dose: 75 mcg Multivitamins/Minerals (Theragran/Minerals Tab*) 1 tab PO DAILY [facility] Last Admin: 04/10/19 08:46 Dose: 1 tab Ondansetron HCl (Zofran Inj*) 4 mg IV Q4H PRN PRN Reason: NAUSEA/VOMITING Last Admin: 04/09/19 20:46 Dose: 4 mg Tramadol HCl (Ultram*) 50 mg PO Q6H PRN PRN Reason: PAIN - MODERATE Last Admin: 04/09/19 19:31 Dose: 50 mg Objective: [] Vital Signs Temp Pulse Resp BP Pulse Ox 98.5 F 81 18 139/70 94 04/10/19 03:59 04/10/19 07:46 04/10/19 08:00 04/10/19 07:46 04/10/19 07:46 A&Ox3, EOMI, neuro grossly non-focal SORIANO HRR, S1S2, no murmur noted, SR on tele LS clear bilat., even and non-labored resp. +BS, round, soft Mild tenderness to mid-axillary line @ lower ribs Laboratory Results - last 24 hr 04/09/19 04/09/19 04/10/19 22:25 22:25 05:58 WBC 20.4 H RBC 3.18 L Hgb 9.4 L Hct 27 L MCV 85 MCH 30 MCHC 35 RDW 14 Plt Count 33 L MPV 8.2 Neut % (Auto) 86.5 Lymph % (Auto) 5.9 Oliver % (Auto) 7.1 Eos % (Auto) 0.3 Baso % (Auto) 0.2 Absolute Neuts (auto) 17.7 H Absolute Lymphs (auto) 1.2 Absolute Monos (auto) 1.5 H Absolute Eos (auto) 0.1 Absolute Basos (auto) 0.0 Absolute Nucleated RBC 0.0 Immature Gran % 5.0 Neutrophils % 88.0 Band Neutrophils % 3.0 Lymphocytes % 3.0 Monocytes % 4.0 Metamyelocytes % 2.0 Nucleated RBC % 0.0 Normal RBC Morphology Normal Sodium Potassium Chloride Carbon Dioxide Anion Gap BUN Creatinine Est GFR ( Amer) Est GFR (Non-Af Amer) BUN/Creatinine Ratio Glucose Calcium Total Bilirubin AST ALT Alkaline Phosphatase Total Protein Albumin Globulin Albumin/Globulin Ratio Prostate Specific Ag Urine Osmolality 500 U Sodium Concentration 34 Urine Potassium 65.9 Ur Chloride Concentrat 41 Blood Type 04/10/19 04/10/19 05:58 05:58 WBC RBC Hgb Hct MCV MCH MCHC RDW Plt Count MPV Neut % (Auto) Lymph % (Auto) Oliver % (Auto) Eos % (Auto) Baso % (Auto) Absolute Neuts (auto) Absolute Lymphs (auto) Absolute Monos (auto) Absolute Eos (auto) Absolute Basos (auto) Absolute Nucleated RBC Immature Gran % Neutrophils % Band Neutrophils % Lymphocytes % Monocytes % Metamyelocytes % Nucleated RBC % Normal RBC Morphology Sodium 125 L Potassium 4.5 Chloride 94 L Carbon Dioxide 19 L Anion Gap 12 H BUN 26 H Creatinine 1.06 Est GFR ( Amer) 81.5 Est GFR (Non-Af Amer) 67.4 BUN/Creatinine Ratio 24.5 H Glucose 88 Calcium 7.9 L Total Bilirubin 1.00 AST 58 H ALT 38 Alkaline Phosphatase 465 H Total Protein 6.0 L Albumin 2.9 L Globulin 3.1 Albumin/Globulin Ratio 0.9 L Prostate Specific Ag 4.421 H Urine Osmolality U Sodium Concentration Urine Potassium Ur Chloride Concentrat Blood Type B Positive Assessment: []78 yo male with newly diagnosed metastatic adenocarcinoma of unknown primary presenting to the hospital with progressive pain, nausea, and urinary retention found to have hyponatremia requiring admission, now improving. Biopsy of liver from earlier this week and symptoms concerning for an upper GI primary EGD planned for today Plan: []1. Metastatic Adenocarcinoma of unknown primary: concern for upper GI primary , EGD today - with mucosal biopsy expected with require 2 units platelets due to plt. <40K - reviewed risks and benefits with pt. and family, pt. consents and denied questions 2. Hyponatremia: most consistent with SIADH with low serum osmolarity and high urine osmolarity - cont. fluid restriction 3. Urinary retention: most consistent with BPH with enlarged prostate on imaging and PSA just over 4 - start Finasteride 5 mg daily - hull currently in place and may require on d/c - consider urology consult on d/c 4. Anemia: mild and history of mild anemia following colon biopsy 2013 - normocytic, however reasonable to check B12 and iron in setting of advanced cancer 5. Weakness and pain: multifactorial - question of lytic lesions on imaging, T11 lesion may explain left chest/rib discomfort - cont. narcotics however it is appropriate to consider a small long acting dose as his pain has been escalating over the last 3 weeks - MS Contin 15 mg PO BID to start today Disposition: Inpt. for procedure, with risk of bleeding with continue monitor overnight and hopeful for d/c home tomorrow with services
[2019-04-10 10:08] LABS: % Iron Saturation 14 % (15-55); Iron 29 ug/dL (50-212); Total Iron Binding Capacity 204 mcg/dL (250-450); Transferrin 146 mg/dL (203-362)
[2019-04-10] MEDS: Finasteride TAB* 5 MG PO SCH (11:12)
[2019-04-10] MEDS: Morphine TAB Extended Release (*) 15 MG TAB.ER PO SCH ×2 (11:12→23:03)
[2019-04-10 12:30] LABS: Mean Platelet Volume 7.7 fL (7.4-10.4); Platelet Count 32 10^3/uL (150-450)
[2019-04-10] MEDS ORDERED: fentaNYL* 50 MCG/ML 2 ML VIAL (100 MCG VIAL) ONE (15:25)
[2019-04-10] MEDS ORDERED: Midazolam* 1 MG/ML 10 ML VIAL (10 MG) ONE (15:25)
--- NOTE | 2019-04-10 17:10 | PN ---
Progress Note - Progress Note Date of Service: 04/10/19 Note: GI EGD Note: E: esophageal mass 34-39cm oozing prior to biopsy. Samples taken with pediatric forceps, Unable to pass adult scope with diameter of 9.9mm. I was able to pass xp scope with diameter of 5.5mm G: Some extension into cardia of 1-2cm, otherwise unremarkable stomach D: Nml Impression: Esophageal source of adenocarcinoma Rec: Biopsies as above Prognosis poor. Would not be able to drag a PEG through endoscopically at this time. Discussed with Oncology service. Maycol Ochoa DO 04/10/19 [id number]
[2019-04-10 18:08] LABS: Mean Platelet Volume 7.6 fL (7.4-10.4); Platelet Count 62 10^3/uL (150-450)
[2019-04-10] MEDS: traMADol TAB* 50 MG PO PRN (21:28)
[2019-04-10] MEDS: Ondansetron INJ* 2 MG/ML VIAL IV PRN (21:29)
--- NOTE | 2019-04-10 22:36 | PRO ---
CC: Dr. Arnold Whitney; Dr. Tana Palmer; Dr. Sofia * DATE OF PROCEDURE: 04/10/19 - ROOM #450 INDICATION FOR PROCEDURE: Adenocarcinoma, unknown primary. PROCEDURE PERFORMED: Complete esophagogastroduodenoscopy with biopsies. MEDICATIONS GIVEN: Include 5 mg IV midazolam, 25 mcg IV fentanyl. DESCRIPTION OF PROCEDURE: After the EGD procedure including the risks, benefits , and alternatives with the risks not limited to perforation, surgery, missed lesions, and/or were explained to the patient, written informed consent was obtained. IV medication was given and a bite block was placed between the teeth. The adult Olympus gastroscope was then inserted into the patient's oropharynx into the tubular esophagus. At roughly 34 cm, a large partially obstructing mass was encountered. It was friable and diffusely oozing prior to any intervention. I was unable to pass the adult scope beyond this area. I then switched to a pediatric XP scope with a diameter of 5.5 mm and was able to traverse this area, where I encountered difficulty with the 9.9 mm adult scope. Passing through this area into the stomach on retroflexion, there was slight extension into the cardia about 1 to 2 cm. The remainder of the views in the stomach were unremarkable. The scope was then advanced through a widely patent pylorus into the duodenal bulb, C-loop, and distal duodenum. These were normal in appearance. The scope was then returned to this mass and gentle biopsies were taken with a pediatric biopsy forceps for confirmation. The scope was then removed from the patient. He tolerated the procedure well. He returned to the recovery room in stable condition. IMPRESSION: 1. Complete esophagogastroduodenoscopy with biopsies. 2. Partially obstructing mass from 35 to 39 cm, occluding three-quarters to seven-eighths of the lumen with scant oozing. 3. Otherwise, unremarkable EGD. RECOMMENDATIONS: Suspect esophageal source of his adenocarcinoma. The prognosis is overall poor. I doubt we will be able to pull a PEG tube bumper through this area due to the luminal size at this point along with the friability with his platelet count. We will follow up on the results of the biopsies, and results were conveyed to the oncology service for further management. [id number]/[facility] #: [id number] [facility]
[2019-04-11] MEDS: Levothyroxine TAB* 75 MCG TAB PO SCH (05:12)
[2019-04-11] MEDS: Ondansetron INJ* 2 MG/ML VIAL IV PRN (05:22)
[2019-04-11] MEDS: traMADol TAB* 50 MG PO PRN (05:22)
[2019-04-11 05:55] LABS: Albumin 2.9 g/dL (3.2-5.2); BUN/Creatinine Ratio 23.9 (8-20); Calcium 7.8 mg/dL (8.6-10.3); EGFR African American 75.7 (>60); EGFR Non-African American 62.6 (>60); Globulin 2.9 g/dL (2-4); Potassium 4.1 mmol/L (3.5-5.0); Total Bilirubin 1.2 mg/dL (0.2-1.0); Total Protein 5.8 g/dL (6.4-8.9)
[2019-04-11 05:59] LABS: ABS Basophils 0.1 10^3/ul (0-0.2); ABS Eosinophils 0.1 10^3/ul (0-0.6); ABS Lymphocytes 1.3 10^3/ul (1.0-4.8); ABS Monocytes 1.3 10^3/ul (0-0.8); ABS Neutrophils 16.5 10^3/ul (1.5-7.7); ABS Nucleated RBC 0.1 10^3/ul; Hematocrit 26 % (42-52); Hemoglobin 8.5 g/dL (14.0-18.0); Mean Corpuscular HGB Conc 33 g/dL (31-36); Mean Corpuscular Hemoglobin 29 pg (27-31); Mean Corpuscular Volume 86 fL (80-94); Mean Platelet Volume 8.5 fL (7.4-10.4); Platelet Count 41 10^3/uL (150-450); Red Blood Count 2.97 10^6 /uL (4.18-5.48); Red Cell Distribution Width 14 % (10-15); White Blood Count 19.3 10^3/uL (3.5-10.8)
[2019-04-11 06:25] LABS: Eosinophil % 0.5 %; Lymphocyte % 6.8 %; Nucleated Red Blood Cells % 0.5
[2019-04-11] MEDS: Docusate CAP* 100 MG PO SCH (07:28)
[2019-04-11] MEDS: Finasteride TAB* 5 MG PO SCH (07:28)
[2019-04-11] MEDS: Multivitamins/Minerals TAB PO SCH (07:28)
[2019-04-11] MEDS: Fluticasone HFA 44 mcg(NF) MDI INH SCH (09:32)
[2019-04-11] MEDS: Morphine TAB Extended Release (*) 15 MG TAB.ER PO SCH (10:43)
[2019-04-11 12:49] VITALS: BP 136/64
--- NOTE | 2019-05-21 19:49 | DS ---
DISCHARGE SUMMARY: DATE OF ADMISSION: 04/09/19 DATE OF DISCHARGE: 04/11/19 DISCHARGE DIAGNOSES: 1. Metastatic carcinoma of the esophagus. 2. Urinary retention. 3. Syndrome of inappropriate antidiuretic hormone secretion. 4. History of atrial fibrillation. 5. Severe weakness. 6. Lytic bone lesions. 7. Rib pain. 8. Anemia. MEDICATIONS AT THE TIME OF DISCHARGE: Included: 1. Finasteride 5 mg daily. 2. Morphine 15 mg of long acting tabs q.12 hours. 3. Levothyroxine 75 mcg daily. 4. Metoprolol 50 mg daily. 5. Azelastine 137 mg each nostril b.i.d. 6. Fluticasone 1 puff daily. 7. Vicodin 1 tablet q.6 hours 5/300. 8. Tramadol 25 mg q.8 hours p.r.n. 9. Docusate 100 mg daily. The patient was asked to stop his cyanocobalamin injections, simvastatin, hydrochlorothiazide, Avapro, nabumetone, aspirin, and multivitamin. HOSPITAL COURSE: Mr. Chi is a 78-year-old male whose was recently seen in the office. At that time, he has had increase in fatigue, significant to left rib cage pain along with weight loss. Several episodes of nausea and vomiting, urinary symptoms. Following initial office visit, a liver biopsy was performed , which revealed metastatic carcinoma without known primary. At the time of admission, he had developed inability to urinate, developed hyponatremia. He was brought into the hospital, a MOLST form was filled out and he was made DNR. He was seen in consultation during his hospitalization by GI and upper GI endoscopy was performed and revealed primary cancer to be in the esophagus. CT scan of the abdomen and pelvis was also performed revealing a widespread metastatic disease with pulmonary nodule, multiple liver metastases, adenopathy , bony sclerotic lesions as well as showing enlarged prostate. The patient upon admission had a sodium of 122, with treatment during the hospitalization it came up to 127. Alkaline phosphatase was markedly elevated at approximately 500. He had a chronically elevated white count of about 19,000 with modest anemia and low platelet count. Decision was made during the hospitalization that he did not want further therapy for his widespread metastatic carcinoma of the esophagus. Arrangements are in the process for him to be discharged home, initially VNS, but likely quick transition to hospice services. DISPOSITION: The patient was discharged home stable, but poor condition. DIET: As tolerated. [id number]/[facility] #: [id number] [facility]
== END 2019-04-11 14:15 | disposition home health service (06) | DRG 375 ==
LOC: ED → MEDTELE 06:17
PROVIDERS: ADMIT Internal Medicine; ATTEND Internal Medicine Hematology & Oncology
PROC: 0DB58ZX Excision of Esophagus, Via Natural or Artificial Opening Endoscopic, Diagnostic (ICD-10-PCS; principal; 2019-04-10)
PROC: 30233R1 Transfusion of Nonautologous Platelets into Peripheral Vein, Percutaneous Approach (ICD-10-PCS; 2019-04-10)
DX: C15.9 Malignant neoplasm of esophagus, unspecified (principal); E87.1 Hypo-osmolality and hyponatremia; C79.51 Secondary malignant neoplasm of bone; C78.7 Secondary malignant neoplasm of liver and intrahepatic bile duct; I10 Essential (primary) hypertension; H91.93 Unspecified hearing loss, bilateral; D64.9 Anemia, unspecified; I48.91 Unspecified atrial fibrillation; E03.9 Hypothyroidism, unspecified; E78.00 Pure hypercholesterolemia, unspecified; I89.0 Lymphedema, not elsewhere classified; Z66 Do not resuscitate; N40.1 Benign prostatic hyperplasia with lower urinary tract symptoms; R33.8 Other retention of urine; D69.6 Thrombocytopenia, unspecified; G89.29 Other chronic pain; K57.90 Diverticulosis of intestine, part unspecified, without perforation or abscess without bleeding; E78.5 Hyperlipidemia, unspecified; K21.9 Gastro-esophageal reflux disease without esophagitis; Z98.42 Cataract extraction status, left eye; Z80.8 Family history of malignant neoplasm of other organs or systems; Z97.4 Presence of external hearing-aid; Z90.49 Acquired absence of other specified parts of digestive tract; Z88.6 Allergy status to analgesic agent; Z85.038 Personal history of other malignant neoplasm of large intestine; Z85.828 Personal history of other malignant neoplasm of skin; Z87.891 Personal history of nicotine dependence; Z98.41 Cataract extraction status, right eye; Z23 Encounter for immunization
CPT/HCPCS: 36415; 74176; 80053; 81003; 82436; 82607; 82728; 83540; 83550; 83690; 83930; 83935; 84133; 84153; 84300; 84484; 85025; 85049; 86140; 86850; 86900; 86901; 88305; 88341; 88342; 88360; 90686; 93005; 93306; 96374; 96376; 99156; 99233; 99284; A9270-GY; G0103; G8978-GP-CJ; G8979-GP-CI; J2250; J2405; J3010; P9035